=== PATIENT | female | born 1985 | race American Indian/Alaskan Native ===

== ENCOUNTER 2017-01-03 05:59 | Emergency (ER) | payer SELFPAY ==
[~2017-01-03] VITALS: Ht 149.9 cm; Wt 53.1 kg
[2017-01-03 06:32] VITALS: BP 133/70
[2017-01-03] MEDS ORDERED: PRENATAL VITAM1 EACH PO (06:41)
--- NOTE | 2017-01-03 06:42 | Emergency Room Report ---
History of Present Illness General Chief Complaint: Pain Source: Patient Present Illness HPI Is a 31-year-old female with no past medical history. She said that she fell down the steps this morning. Complaining of pain. Pain is 8/10. No loss of consciousness. Denies any other injury. While she is here she also said that she is . She check her urine 2 days ago and was positive. Unknown last menstrual period because she was on the adapter shot before going off it. Took Barnhart this morning. She and her brother weresitting in the waiting room for over an hour before decided to check in. Allergies: Uncoded Allergies: ASPIRIN (Allergy, Unknown, 01/03/17) Patient History Past Medical History: see triage record, old chart reviewed Past Surgical History: other Pertinent Family History: none Social History: Reports: alcohol use, drug use - A lot, smoking Last Menstrual Period: 10/29 Now: Yes : 2 Para: 2 Immunizations: other Reviewed Nursing Documentation: PMH: Agreed, PSxH: Agreed Nursing Documentation-PMH Hx Asthma: Yes History Of Psychiatric Problem: Yes - Depression Review of Systems Eye: Denies: blurred vision, eye pain ENT: Denies: ear pain, nose congestion, throat swelling Respiratory: Denies: cough, shortness of breath Cardiovascular: Denies: chest pain, palpitations Gastrointestinal: Denies: abdominal pain, diarrhea, nausea, vomiting Musculoskeletal: Reports: back pain, Denies: joint pain Skin: Denies: rash Neurological: Denies: headache, numbness Endocrine: Denies: increased thirst, increased urine Hematologic/Lymphatic: Denies: easy bruising All Other Systems: negative except mentioned in HPI Physical Exam Vital Signs Date Time Temp Pulse Resp B/P Pulse Ox O2 Delivery O2 Flow Rate FiO2 01/03/17 06:13 98.4 86 15 133/70 100 Room Air vitals normal Sp02 EP Interpretation: reviewed, normal General Appearance: well appearing, no apparent distress, alert Head: normocephalic, atraumatic Eyes: bilateral eye EOMI, bilateral eye PERRL ENT: hearing grossly normal, normal pharynx Neck: full range of motion, supple, no meningismus Respiratory: chest non-tender, lungs clear, normal breath sounds Cardiovascular #1: regular rate, rhythm, no murmur Gastrointestinal: normal bowel sounds, non tender, no mass, no organomegaly, no bruit, non-distended Musculoskeletal: back normal, gait/station normal, normal range of motion Neurologic: alert, oriented x3 Psychiatric: mood/affect normal Skin: warm/dry Medical Decision Making Diagnostic Impression: Primary Impression: Back pain Qualified Codes: M54.5 - Low back pain Additional Impression: First trimester ER Course Patient with alleged fall. I see no injury. She is walking around without any difficulty. No limping. She sat in the waiting room for over an hour without any difficulty. I did a bedside ultrasound showed IUP with good movement and heart beat. This was transabdominal. Based on my estimation, this is at least10 weeks . Last Vital Signs Date Time Temp Pulse Resp B/P Pulse Ox O2 Delivery O2 Flow Rate FiO2 01/03/17 06:32 98.4 84 15 133/70 100 Room Air Status: unchanged Disposition: HOME, SELF-CARE Condition: Stable Scripts Vits W-Ca,Fe,Fa(<1MG) ( VITAMINS) 1 Each Tablet 1 EACH PO DAILY, #30 TAB Prov: MOLLY DELACRUZ M.D. 01/03/17 Additional Instructions: Stop alcohol and drugs. Stop smoking. Followup your DrJosh for referral to see OB /[facility]. Return for worsening symptoms. You can only take Tylenol because you are . Return if worse. MOLLY DELACRUZ M.D. Jan 03, 2017 06:41
[2017-01-03 06:50] VITALS: BP 133/70
== END 2017-01-03 06:50 | disposition home or self-care (01) ==
LOC: EMR 06:20
DX: O26.891 Other specified pregnancy related conditions, first trimester (principal); M54.9 Dorsalgia, unspecified; J45.909 Unspecified asthma, uncomplicated; F32.9 Major depressive disorder, single episode, unspecified
CPT/HCPCS: 99283